=== PATIENT | female | born 1995 | race Hispanic/Latino ===

== ENCOUNTER 2020-11-08 18:36 | Emergency (ER) | payer MEDICAID ==
[2020-11-08] MEDS ORDERED: KETOROLAC TROMETHAMINE 30MG/ML ONE (19:19)
== END 2020-11-08 19:28 | disposition home or self-care (01) ==
LOC: EDH 18:36
DX: S39.012A Strain of muscle, fascia and tendon of lower back, initial encounter (principal); S80.02XA Contusion of left knee, initial encounter; X58.XXXA Exposure to other specified factors, initial encounter; Y93.89 Activity, other specified; Y92.89 Other specified places as the place of occurrence of the external cause; Y99.8 Other external cause status
CPT/HCPCS: 96374; 99283; J1885